=== PATIENT | male | born 1935 ===

== ENCOUNTER → 2019-09-12 06:15 | Outpatient (ROUT) | payer SELFPAY ==
[2019-09-12 08:08] LABS: Clostridium Difficile Tox PCR Negative for C. diff
[2019-09-14 15:36] LABS: COVID19 Sendout Not Detected (Not Detected)
== END ==
PROVIDERS: Family Provider Internal Medicine; Visit Provider Internal Medicine
DX: R19.5 Other fecal abnormalities (principal); Z11.59 Encounter for screening for other viral diseases
CPT/HCPCS: 87493; 87635